=== PATIENT | male | born 1945 | race Caucasian/White ===

== ENCOUNTER 2017-05-15 13:02 | Inpatient (IN) | payer MEDICARE, OTHER ==
[2017-05-15 13:02] VITALS: BMI 31.8
--- NOTE | 2017-05-15 13:13 | C.PDOC ---
History Of Present Illness 72M c/o productive cough and sob worsening for the last week, worse w exertion. subjective fever not measured. esrd on dialysis last yesterday. says pmd gave him medicine for his illness which he has finished but he is not sure what it was. Time Seen by Provider: 05/15/17 13:13 Chief Complaint (Nursing): Shortness Of Breath Past Medical History Vital Signs: Last Vital Signs Temp 97.8 F 05/15/17 13:05 Pulse 100 H 05/15/17 13:05 Resp 18 05/15/17 13:05 BP 142/76 05/15/17 13:05 Pulse Ox 96 05/15/17 13:23 - Medical History PMH: Asthma, CAD, CHF, Diabetes, HTN, Hypercholesterolemia, Hyperlipidemia, Chronic Kidney Disease - Jet Procedures CATARAC PHACOEMULS/ASPIR (03/09/13) INSERT LENS AT CATAR EXT (03/09/13) Family History: States: Other Other Family History: nc - Social History Hx Tobacco Use: No Hx Alcohol Use: No Hx Substance Use: No Review Of Systems Except As Marked, All Systems Reviewed And Found Negative. Constitutional: Positive for: Fever, Malaise Cardiovascular: Positive for: Edema. Negative for: Chest Pain Respiratory: Positive for: Cough, Shortness of Breath, SOB with Excertion, Sputum, Wheezing. Negative for: Hemoptysis Gastrointestinal: Negative for: Vomiting, Abdominal Pain Physical Exam - Physical Exam Appears: Non-toxic, No Acute Distress Skin: Warm, Dry Eye(s): bilateral: PERRL Nose: No Epistaxis Oral Mucosa: Moist Neck: Normal ROM Cardiovascular: Rhythm Regular Respiratory: Decreased Breath Sounds, No Accessory Muscle Use, Wheezing Gastrointestinal/Abdominal: Soft, No Tenderness Extremity: Swelling (1+ BLE) Pulses: Left Radial: Normal, Right Radial: Normal Neurological/Psych: Oriented x3, Other (no focal deficits) ED Course And Treatment O2 Sat by Pulse Oximetry: 96 Disposition - Disposition Forms: [employer] (Setswana)
[2017-05-15] MEDS ORDERED: Azithromycin 500 MG in Sodium Chloride 0.9% 250 ML IVPB STA (13:23)
[2017-05-15] MEDS: Albuterol-Ipratrop 3 mg / 0.5 (3 ml) UD IH SCH ×3 (13:35→14:07)
[2017-05-15] MEDS ORDERED: Albuterol-Ipratrop 3 mg / 0.5 (3 ml) UD ONE ×2 (13:38→13:50)
[2017-05-15] MEDS ORDERED: Sodium Chloride 0.9% 1,000 ML ONE (13:53)
[2017-05-15] MEDS ORDERED: cefTRIAXone IV 1 gm in Dextros 50 ML IVPB ONE (13:53)
[2017-05-15 14:10] LABS: BASO # 0.1 K/uL (0.0-0.2); BASO % 0.6 % (0.0-2.0); EOS # 0.3 K/uL (0.0-0.7); EOS % 3.2 % (0.0-4.0); HEMATOCRIT 32.4 % (35.0-51.0); LYMPH # 1.6 K/uL (1.0-4.3); LYMPH % 16.5 % (20.0-40.0); MEAN CELL VOLUME 90.2 fL (80.0-94.0); MEAN CORPUSCULAR HEMOGLOBIN 30.1 pg (27.0-31.0); MEAN CORPUSCULAR HGB CONC 33.4 g/dL (33.0-37.0); MEAN PLATELET VOLUME 8.3 fL (7.2-11.7); MONO # 1.4 K/uL (0.0-0.8); MONO % 13.9 % (0.0-10.0); RED CELL DISTRIBUTION WIDTH 14.9 % (11.5-14.5)
[2017-05-15 14:22] LABS: DRAW SITE VBG; VENOUS BLOOD GAS BASE EXCESS 6.5 mmol/L (0.0-2.0); VENOUS BLOOD GAS PCO2 60 mmHg (40-60); VENOUS BLOOD PH 7.36 (7.32-7.43)
[2017-05-15 14:36] LABS: ALB/GLOB RATIO 0.9 (1.0-2.1); TOTAL PROTEIN 8.7 g/dL (6.3-8.3)
[2017-05-15 14:37] LABS: POTASSIUM 5.1 mmol/L (3.6-5.2)
[2017-05-15] MEDS ORDERED: Azithromycin 500mg/250ML NS 500 MG/250 ML BAG IVPB ONE (14:42)
[2017-05-15] MEDS: (Novolin 70/30) NPH/Regular 70/30 Units/ml 10 ml vial SC SCH (18:11)
[2017-05-15] MEDS: Ranolazine 500 mg Extended Release Tablets PO SCH (18:11)
--- NOTE | 2017-05-15 21:20 | CP.PCM.HP ---
History of Present Illness - History of Present Illness History of Present Illness: A 72-year-old male with PMHasthma, ISD, CHF, DM, HTN, hypercholesterolemia, hyperlipidemia and CKD [on dialysis] presents for cough and shortness of breath. C/ cough for 1 week. Productive of whitish sputum, occasionally yellowish. C/Oshortness of breath for 1 week. Insidious in onset, progressive, on exertion , on walking 1-2 blocks, Partly relieved by rest. C/Ofever for 3-4 days. Mild, low-grade, no chills or rigors. No C/Ochest pain, hemoptysis, palpitations, PND. Past Patient History - Infectious Disease Hx of Infectious Diseases: None - Past Medical History & Family History Past Medical History?: Yes - Past Social History Smoking Status: Never Smoked - CARDIAC Hx Congestive Heart Failure: Yes Hx Hypercholesterolemia: Yes Hx Hypertension: Yes - PULMONARY Hx Asthma: Yes - NEUROLOGICAL Hx Neurological Disorder: No - HEENT Hx HEENT Problems: No - RENAL Hx Chronic Kidney Disease: Yes - ENDOCRINE/METABOLIC Hx Diabetes Mellitus Type 2: Yes - HEMATOLOGICAL/ONCOLOGICAL Hx Blood Disorders: No - INTEGUMENTARY Hx Dermatological Problems: No - MUSCULOSKELETAL/RHEUMATOLOGICAL Hx Falls: No - GASTROINTESTINAL Hx Gastrointestinal Disorders: No - GENITOURINARY/GYNECOLOGICAL Hx Genitourinary Disorders: No - PSYCHIATRIC Hx Substance Use: No - SURGICAL HISTORY Hx Angioplasty: Yes Hx Open Heart Surgery: Yes - ANESTHESIA Hx Anesthesia: Yes Hx Anesthesia Reactions: No Meds Allergies/Adverse Reactions: Allergies Allergy/AdvReac Type Severity Reaction Status Date / Time No Known Allergies Allergy Verified 05/15/17 13:06 Results - Vital Signs Recent Vital Signs: Last Vital Signs Temp 98.5 F 05/15/17 16:15 Pulse 103 H 05/15/17 16:15 Resp 16 05/15/17 16:35 BP 136/75 05/15/17 16:15 Pulse Ox 98 05/15/17 16:15 - Labs Result Diagrams: 05/19/17 08:09 05/19/17 08:09 Labs: Laboratory Results - last 24 hr 05/15/17 05/15/17 05/15/17 13:20 14:07 14:07 WBC 10.0 RBC 3.59 L Hgb 10.8 L Hct 32.4 L MCV 90.2 D MCH 30.1 MCHC 33.4 RDW 14.9 H Plt Count 255 MPV 8.3 Neut % (Auto) 65.8 Lymph % (Auto) 16.5 L Emanuel % (Auto) 13.9 H Eos % (Auto) 3.2 Baso % (Auto) 0.6 Neut # 6.6 Lymph # 1.6 Emanuel # 1.4 H Eos # 0.3 Baso # 0.1 Puncture Site pO2 Gio Test VBG pH VBG pCO2 VBG HCO3 VBG O2 Sat (Calc) VBG Base Excess Sodium 132 Potassium 5.1 Chloride 92 L Carbon Dioxide 28 Anion Gap 17 BUN 27 H Creatinine 3.2 H Est GFR ( Amer) 23 Est GFR (Non-Af Amer) 19 POC Glucose (mg/dL) Random Glucose 201 H Calcium 9.0 Total Bilirubin 1.0 AST 51 ALT 40 Alkaline Phosphatase 75 Total Protein 8.7 H Albumin 4.1 Globulin 4.6 H Albumin/Globulin Ratio 0.9 L Influenza Typ A,B (EIA) Negative for flu a/b 05/15/17 05/15/17 14:18 17:44 WBC RBC Hgb Hct MCV MCH MCHC RDW Plt Count MPV Neut % (Auto) Lymph % (Auto) Emanuel % (Auto) Eos % (Auto) Baso % (Auto) Neut # Lymph # Emanuel # Eos # Baso # Puncture Site Vbg pO2 35 Gio Test Na VBG pH 7.36 VBG pCO2 60 VBG HCO3 29.1 VBG O2 Sat (Calc) 70.6 H VBG Base Excess 6.5 H Sodium Potassium Chloride Carbon Dioxide Anion Gap BUN Creatinine Est GFR ( Amer) Est GFR (Non-Af Amer) POC Glucose (mg/dL) 354 H Random Glucose Calcium Total Bilirubin AST ALT Alkaline Phosphatase Total Protein Albumin Globulin Albumin/Globulin Ratio Influenza Typ A,B (EIA)
[2017-05-15] MEDS: (Novolin R) Insulin Human Regular 100 units/ml vial SC SCH (21:41)
[2017-05-16] MEDS: Albuterol-Ipratrop 3 mg / 0.5 (3 ml) UD INH SCH ×4 (01:33→19:31)
[2017-05-16] MEDS: (Novolin R) Insulin Human Regular 100 units/ml vial SC SCH ×4 (07:44→21:26)
[2017-05-16] MEDS ORDERED: CRESTOR 10 MG PO SCH (10:00)
[2017-05-16] MEDS: cefTRIAXone IV 1 gm in Dextros 50 ML IVPB SCH (10:22)
[2017-05-16] MEDS: Ranolazine 500 mg Extended Release Tablets PO SCH ×2 (10:23→17:51)
[2017-05-16] MEDS: Azithromycin 500mg/250ML NS 500 MG/250 ML BAG IVPB SCH (10:24)
[2017-05-16] MEDS: (Novolin 70/30) NPH/Regular 70/30 Units/ml 10 ml vial SC SCH ×2 (10:25→17:52)
[2017-05-16] MEDS: MethylPREDNISolone 40 mg Vial IVP SCH ×2 (10:32→21:25)
--- NOTE | 2017-05-16 18:04 | CP.PCM.CON ---
History of Present Illness - History of Present Illness History of Present Illness: reason for consultation: cough and shortness of breath 72-year-old male with history of end-stage renal disease , diabetes, coronary artery disease presented to emergency room with shortness of breath and productive cough worsening over the last 2 weeks. Patient was treated as outpatien without any relief. Also complaining off subjective fever but denies chest pain Review of Systems - Review of Systems All systems: reviewed and no additional remarkable complaints except (shortness of breath and cough) Past Patient History - Infectious Disease Hx of Infectious Diseases: None - Past Medical History & Family History Past Medical History?: Yes - Past Social History Smoking Status: Never Smoked - CARDIAC Hx Congestive Heart Failure: Yes Hx Hypercholesterolemia: Yes Hx Hypertension: Yes - PULMONARY Hx Asthma: Yes - NEUROLOGICAL Hx Neurological Disorder: No - HEENT Hx HEENT Problems: No - RENAL Hx Chronic Kidney Disease: Yes - ENDOCRINE/METABOLIC Hx Diabetes Mellitus Type 2: Yes - HEMATOLOGICAL/ONCOLOGICAL Hx Blood Disorders: No - INTEGUMENTARY Hx Dermatological Problems: No - MUSCULOSKELETAL/RHEUMATOLOGICAL Hx Falls: No - GASTROINTESTINAL Hx Gastrointestinal Disorders: No - GENITOURINARY/GYNECOLOGICAL Hx Genitourinary Disorders: No - PSYCHIATRIC Hx Substance Use: No - SURGICAL HISTORY Hx Angioplasty: Yes Hx Open Heart Surgery: Yes - ANESTHESIA Hx Anesthesia: Yes Hx Anesthesia Reactions: No Meds Allergies/Adverse Reactions: Allergies Allergy/AdvReac Type Severity Reaction Status Date / Time No Known Allergies Allergy Verified 05/15/17 13:06 - Medications Medications: Current Medications Albuterol/Ipratropium (Duoneb 3 Mg/0.5 Mg (3 Ml) Ud) 3 ml INH RQ6 [facility] Last Admin: 05/16/17 13:34 Dose: Not Given Carvedilol (Coreg) 6.25 mg PO BID [facility] Last Admin: 05/16/17 17:51 Dose: 6.25 mg Clopidogrel Bisulfate (Plavix) 75 mg PO DAILY [facility] Last Admin: 05/16/17 10:24 Dose: Not Given Glimepiride (Amaryl) 4 mg PO DAILY [facility] Last Admin: 05/16/17 10:23 Dose: 4 mg Heparin Sodium (Porcine) (Heparin) 5,000 units SC Q8 [facility] Last Admin: 05/16/17 14:17 Dose: Not Given Azithromycin (Zithromax 500mg In Ns Addvantage) 500 mg in 250 mls @ 167 mls/hr IVPB Q24H [facility] Last Admin: 05/16/17 10:24 Dose: 167 mls/hr Ceftriaxone Sodium (Rocephin Iv 1 Gm Duplex) 50 mls @ 100 mls/hr IVPB DAILY [facility] Last Admin: 05/16/17 10:22 Dose: 100 mls/hr Insulin Human Isoph/Insulin Regular (Novolin 70/30 (70/30 Units/Ml) 10 Ml) 50 units SC BID [facility] Last Admin: 05/16/17 17:52 Dose: 50 units Insulin Human Regular (Novolin R) 0 unit SC ACHS [facility] PRN Reason: Protocol Last Admin: 05/16/17 16:30 Dose: 6 unit Isosorbide Mononitrate (Imdur) 60 mg PO DAILY [facility] Last Admin: 05/16/17 10:25 Dose: Not Given Losartan Potassium (Cozaar) 50 mg PO DAILY [facility] Last Admin: 05/16/17 10:26 Dose: Not Given Methylprednisolone (Solu-Medrol) 40 mg IVP Q12H [facility] Last Admin: 05/16/17 10:32 Dose: 40 mg Montelukast Sodium (Singulair) 10 mg PO DAILY [facility] Last Admin: 05/16/17 10:23 Dose: 10 mg Pneumococcal Polyvalent Vaccine (Pneumovax 23 Vaccine) 0.5 ml IM .ONCE ONE Stop: 05/18/17 10:01 Ranolazine (Ranexa) 500 mg PO BID [facility] Last Admin: 05/16/17 17:51 Dose: 500 mg Rosuvastatin Calcium (Crestor) 10 mg PO HS [facility] Last Admin: 05/15/17 21:32 Dose: 10 mg Sitagliptin Phosphate (Januvia) 100 mg PO DAILY [facility] Last Admin: 05/16/17 10:23 Dose: 100 mg Physical Exam - Head Exam Head Exam: ATRAUMATIC, NORMOCEPHALIC - ENT Exam ENT Exam: Mucous Membranes Moist Results - Vital Signs Recent Vital Signs: Last Vital Signs Temp 97.5 F L 05/16/17 15:15 Pulse 89 05/16/17 15:15 Resp 20 05/16/17 15:15 BP 104/68 05/16/17 15:15 Pulse Ox 96 05/16/17 15:15 - Labs Result Diagrams: 05/15/17 14:07 05/15/17 14:07 Labs: Laboratory Results - last 24 hr 05/15/17 05/16/17 05/16/17 21:22 07:08 11:38 POC Glucose (mg/dL) 441 H* 313 H 296 H 05/16/17 16:12 POC Glucose (mg/dL) 318 H Assessment & Plan (1) Cough Status: Acute Comment: cough and shortness of breath. rule out pneumonia. Continue antibiotics. Followup culture and sensitivity. Nebulizer treatment. Continue hemodialysis (2) Renal insufficiency Status: Acute
--- NOTE | 2017-05-16 18:26 | CP.PCM.PN ---
Subjective - Date & Time of Evaluation Date of Evaluation: 05/16/17 Time of Evaluation: 09:00 - Subjective Subjective: clinically same Objective - Vital Signs/Intake and Output Vital Signs (last 24 hours): Temp Pulse Resp BP Pulse Ox 97.5 F L 89 20 104/68 96 05/16/17 15:15 05/16/17 15:15 05/16/17 15:15 05/16/17 15:15 05/16/17 15:15 Intake and Output: 05/16/17 05/16/17 06:59 18:59 Intake Total 100 650 Output Total 400 Balance -300 650 - Medications Medications: Current Medications Albuterol/Ipratropium (Duoneb 3 Mg/0.5 Mg (3 Ml) Ud) 3 ml INH RQ6 [facility] Last Admin: 05/16/17 13:34 Dose: Not Given Carvedilol (Coreg) 6.25 mg PO BID [facility] Last Admin: 05/16/17 17:51 Dose: 6.25 mg Clopidogrel Bisulfate (Plavix) 75 mg PO DAILY [facility] Last Admin: 05/16/17 10:24 Dose: Not Given Glimepiride (Amaryl) 4 mg PO DAILY [facility] Last Admin: 05/16/17 10:23 Dose: 4 mg Heparin Sodium (Porcine) (Heparin) 5,000 units SC Q8 [facility] Last Admin: 05/16/17 14:17 Dose: Not Given Azithromycin (Zithromax 500mg In Ns Addvantage) 500 mg in 250 mls @ 167 mls/hr IVPB Q24H [facility] Last Admin: 05/16/17 10:24 Dose: 167 mls/hr Ceftriaxone Sodium (Rocephin Iv 1 Gm Duplex) 50 mls @ 100 mls/hr IVPB DAILY [facility] Last Admin: 05/16/17 10:22 Dose: 100 mls/hr Insulin Human Isoph/Insulin Regular (Novolin 70/30 (70/30 Units/Ml) 10 Ml) 50 units SC BID [facility] Last Admin: 05/16/17 17:52 Dose: 50 units Insulin Human Regular (Novolin R) 0 unit SC ACHS [facility] PRN Reason: Protocol Last Admin: 05/16/17 16:30 Dose: 6 unit Isosorbide Mononitrate (Imdur) 60 mg PO DAILY [facility] Last Admin: 05/16/17 10:25 Dose: Not Given Losartan Potassium (Cozaar) 50 mg PO DAILY [facility] Last Admin: 05/16/17 10:26 Dose: Not Given Methylprednisolone (Solu-Medrol) 40 mg IVP Q12H [facility] Last Admin: 05/16/17 10:32 Dose: 40 mg Montelukast Sodium (Singulair) 10 mg PO DAILY [facility] Last Admin: 05/16/17 10:23 Dose: 10 mg Pneumococcal Polyvalent Vaccine (Pneumovax 23 Vaccine) 0.5 ml IM .ONCE ONE Stop: 05/18/17 10:01 Promethazine HCl/Dextromethorphan (Phenergan Dm Syrup) 5 ml PO Q6H PRN PRN Reason: Cough Ranolazine (Ranexa) 500 mg PO BID [facility] Last Admin: 05/16/17 17:51 Dose: 500 mg Rosuvastatin Calcium (Crestor) 10 mg PO HS [facility] Last Admin: 05/15/17 21:32 Dose: 10 mg Sitagliptin Phosphate (Januvia) 100 mg PO DAILY [facility] Last Admin: 05/16/17 10:23 Dose: 100 mg - Labs Labs: 05/15/17 14:07 05/15/17 14:07 - Constitutional Appears: Well - Head Exam Head Exam: ATRAUMATIC, NORMAL INSPECTION, NORMOCEPHALIC - Eye Exam Eye Exam: EOMI, Normal appearance, PERRL Pupil Exam: NORMAL ACCOMODATION, PERRL - ENT Exam ENT Exam: Mucous Membranes Moist, Normal Exam - Neck Exam Neck Exam: Full ROM, Normal Inspection. absent: Lymphadenopathy - Respiratory Exam Respiratory Exam: Decreased Breath Sounds - Cardiovascular Exam Cardiovascular Exam: REGULAR RHYTHM, +S1, +S2. absent: Murmur - GI/Abdominal Exam GI & Abdominal Exam: Soft, Normal Bowel Sounds. absent: Tenderness - Rectal Exam Rectal Exam: Deferred Assessment and Plan (1) Cough Status: Acute (2) Chest pain Status: Acute (3) Chronic obstructive lung disease Status: Acute (4) Exertional dyspnea Status: Acute (5) Renal insufficiency Status: Acute - Assessment and Plan (Free Text) Plan: Patient examined. EKG suggestive of sinus tachycardia and ST and T-wave abnormality. Chest x-ray suggestive of moderate venous congestion. Left pleural effusion. Continue ceftriaxone and azithromycin. Continue clopidogrel. Continue antihypertensive and antidiabetic medications. Continue supportive care.
[2017-05-16] MEDS: Promethazine DM 6.25 mg-15 mg/5 ml Syrup PO PRN (21:25)
[2017-05-17] MEDS: Albuterol-Ipratrop 3 mg / 0.5 (3 ml) UD INH SCH ×4 (02:26→20:00)
[2017-05-17] MEDS: Promethazine DM 6.25 mg-15 mg/5 ml Syrup PO PRN ×2 (05:24→17:46)
[2017-05-17] MEDS: (Novolin R) Insulin Human Regular 100 units/ml vial SC SCH ×4 (07:42→21:33)
[2017-05-17] MEDS: Ranolazine 500 mg Extended Release Tablets PO SCH ×2 (10:20→17:45)
[2017-05-17] MEDS: (Novolin 70/30) NPH/Regular 70/30 Units/ml 10 ml vial SC SCH ×2 (10:21→17:46)
[2017-05-17] MEDS: MethylPREDNISolone 40 mg Vial IVP SCH ×2 (10:30→21:33)
[2017-05-17] MEDS: cefTRIAXone IV 1 gm in Dextros 50 ML IVPB SCH (10:31)
[2017-05-17] MEDS: Azithromycin 500mg/250ML NS 500 MG/250 ML BAG IVPB SCH (11:11)
--- NOTE | 2017-05-17 13:49 | CP.PCM.PN ---
Subjective - Date & Time of Evaluation Date of Evaluation: 05/17/17 Time of Evaluation: 09:00 - Subjective Subjective: clinically same Objective - Vital Signs/Intake and Output Vital Signs (last 24 hours): Temp Pulse Resp BP Pulse Ox 97.8 F 84 20 126/75 97 05/17/17 08:00 05/17/17 08:00 05/17/17 08:00 05/17/17 08:00 05/17/17 11:55 Intake and Output: 05/17/17 05/17/17 06:59 18:59 Intake Total 240 Balance 240 - Medications Medications: Current Medications Albuterol/Ipratropium (Duoneb 3 Mg/0.5 Mg (3 Ml) Ud) 3 ml INH RQ6 [facility] Last Admin: 05/17/17 13:23 Dose: Not Given Carvedilol (Coreg) 6.25 mg PO BID [facility] Last Admin: 05/17/17 10:20 Dose: 6.25 mg Clopidogrel Bisulfate (Plavix) 75 mg PO DAILY [facility] Last Admin: 05/17/17 10:20 Dose: 75 mg Glimepiride (Amaryl) 4 mg PO DAILY [facility] Last Admin: 05/17/17 10:20 Dose: 4 mg Heparin Sodium (Porcine) (Heparin) 5,000 units SC Q8 [facility] Last Admin: 05/17/17 05:25 Dose: 5,000 units Azithromycin (Zithromax 500mg In Ns Addvantage) 500 mg in 250 mls @ 167 mls/hr IVPB Q24H [facility] Last Admin: 05/17/17 11:11 Dose: 167 mls/hr Ceftriaxone Sodium (Rocephin Iv 1 Gm Duplex) 50 mls @ 100 mls/hr IVPB DAILY [facility] Last Admin: 05/17/17 10:31 Dose: 100 mls/hr Insulin Human Isoph/Insulin Regular (Novolin 70/30 (70/30 Units/Ml) 10 Ml) 50 units SC BID [facility] Last Admin: 05/17/17 10:21 Dose: 50 units Insulin Human Regular (Novolin R) 0 unit SC ACHS [facility] PRN Reason: Protocol Last Admin: 05/17/17 11:43 Dose: 6 unit Isosorbide Mononitrate (Imdur) 60 mg PO DAILY [facility] Last Admin: 05/17/17 10:20 Dose: 60 mg Losartan Potassium (Cozaar) 50 mg PO DAILY [facility] Last Admin: 05/17/17 10:20 Dose: 50 mg Methylprednisolone (Solu-Medrol) 40 mg IVP Q12H [facility] Last Admin: 05/17/17 10:30 Dose: 40 mg Montelukast Sodium (Singulair) 10 mg PO DAILY [facility] Last Admin: 05/17/17 10:20 Dose: 10 mg Pneumococcal Polyvalent Vaccine (Pneumovax 23 Vaccine) 0.5 ml IM .ONCE ONE Stop: 05/18/17 10:01 Promethazine HCl/Dextromethorphan (Phenergan Dm Syrup) 5 ml PO Q6H PRN PRN Reason: Cough Last Admin: 05/17/17 05:24 Dose: 5 ml Ranolazine (Ranexa) 500 mg PO BID [facility] Last Admin: 05/17/17 10:20 Dose: 500 mg Rosuvastatin Calcium (Crestor) 10 mg PO HS [facility] Last Admin: 05/16/17 21:25 Dose: 10 mg Sitagliptin Phosphate (Januvia) 100 mg PO DAILY [facility] Last Admin: 05/17/17 10:20 Dose: 100 mg - Labs Labs: 05/15/17 14:07 05/15/17 14:07 - Constitutional Appears: Well - Head Exam Head Exam: ATRAUMATIC, NORMAL INSPECTION, NORMOCEPHALIC - Eye Exam Eye Exam: EOMI, Normal appearance, PERRL Pupil Exam: NORMAL ACCOMODATION, PERRL - ENT Exam ENT Exam: Mucous Membranes Moist, Normal Exam - Neck Exam Neck Exam: Full ROM, Normal Inspection. absent: Lymphadenopathy - Respiratory Exam Respiratory Exam: Decreased Breath Sounds - Cardiovascular Exam Cardiovascular Exam: REGULAR RHYTHM, +S1, +S2 - GI/Abdominal Exam GI & Abdominal Exam: Soft, Diminished Bowel Sounds - Rectal Exam Rectal Exam: Deferred Assessment and Plan (1) Cough Status: Acute (2) Chest pain Status: Acute (3) Chronic obstructive lung disease Status: Acute (4) Exertional dyspnea Status: Acute (5) Renal insufficiency Status: Acute - Assessment and Plan (Free Text) Plan: Patient examined. Patient better. Continue clopidogrel. Continue ceftriaxone and azithromycin. Continue antidiabetic and antihypertensive medications. Continue supportive care.
[2017-05-18] MEDS: Albuterol-Ipratrop 3 mg / 0.5 (3 ml) UD INH SCH ×4 (02:53→19:48)
[2017-05-18] MEDS ORDERED: Azithromycin 500 MG in Sodium Chloride 0.9% 250 ML IVPB SCH (06:45)
[2017-05-18] MEDS: (Novolin R) Insulin Human Regular 100 units/ml vial SC SCH ×4 (08:23→21:18)
[2017-05-18] MEDS ORDERED: Pneumococcal 23-Valent Vaccine IM ONE (10:00)
[2017-05-18] MEDS ORDERED: Influenza Vaccine 60 mcg/0.5 mL SYR (4YR UP) IM ONE (10:00)
[2017-05-18] MEDS: Ranolazine 500 mg Extended Release Tablets PO SCH ×2 (10:13→17:06)
[2017-05-18] MEDS: (Novolin 70/30) NPH/Regular 70/30 Units/ml 10 ml vial SC SCH ×2 (10:14→17:07)
[2017-05-18] MEDS: MethylPREDNISolone 40 mg Vial IVP SCH ×2 (10:18→21:17)
[2017-05-18] MEDS: Azithromycin 500 MG in Sodium Chloride 0.9% 250 ML IVPB SCH (10:18)
[2017-05-18] MEDS: cefTRIAXone IV 1 gm in Dextros 50 ML IVPB SCH (10:19)
--- NOTE | 2017-05-18 15:10 | RAD ---
HISTORY: Shortness of breath. Cough. COMPARISON: No prior. FINDINGS: LUNGS: Moderate venous congestion. Left basilar airspace opacity with small left pleural effusion. PLEURA: As above. CARDIOVASCULAR: Status post median sternotomy and CABG. OSSEOUS STRUCTURES: Degenerative changes in the spine and shoulders. VISUALIZED UPPER ABDOMEN: Normal. OTHER FINDINGS: None. IMPRESSION: Moderate venous congestion. Left basilar airspace opacity with small left pleural effusion.
--- NOTE | 2017-05-18 17:04 | CP.PCM.PN ---
Subjective - Date & Time of Evaluation Date of Evaluation: 05/18/17 Time of Evaluation: 08:30 - Subjective Subjective: still complaining of shortness of breath and cough Denies fever chills Chest x-ray consistent with left basilar infiltrate Objective - Vital Signs/Intake and Output Vital Signs (last 24 hours): Temp Pulse Resp BP Pulse Ox 97.4 F L 96 H 20 108/58 L 98 05/18/17 16:55 05/18/17 16:55 05/18/17 16:55 05/18/17 16:55 05/18/17 16:55 Intake and Output: 05/18/17 05/18/17 06:59 18:59 Intake Total 180 540 Balance 180 540 - Medications Medications: Current Medications Albuterol/Ipratropium (Duoneb 3 Mg/0.5 Mg (3 Ml) Ud) 3 ml INH RQ6 [facility] Last Admin: 05/18/17 07:56 Dose: Not Given Carvedilol (Coreg) 6.25 mg PO BID [facility] Last Admin: 05/18/17 10:18 Dose: 6.25 mg Clopidogrel Bisulfate (Plavix) 75 mg PO DAILY [facility] Last Admin: 05/18/17 10:14 Dose: 75 mg Glimepiride (Amaryl) 4 mg PO DAILY [facility] Last Admin: 05/18/17 10:13 Dose: 4 mg Heparin Sodium (Porcine) (Heparin) 5,000 units SC Q8 [facility] Last Admin: 05/18/17 13:31 Dose: 5,000 units Ceftriaxone Sodium (Rocephin Iv 1 Gm Duplex) 50 mls @ 100 mls/hr IVPB DAILY [facility] Last Admin: 05/18/17 10:19 Dose: 100 mls/hr Azithromycin 500 mg/ Sodium (Chloride) 250 mls @ 167 mls/hr IVPB Q24H [facility] Last Admin: 05/18/17 10:18 Dose: 167 mls/hr Insulin Human Isoph/Insulin Regular (Novolin 70/30 (70/30 Units/Ml) 10 Ml) 50 units SC BID [facility] Last Admin: 05/18/17 10:14 Dose: 50 units Insulin Human Regular (Novolin R) 0 unit SC ACHS [facility] PRN Reason: Protocol Last Admin: 05/18/17 11:56 Dose: 8 unit Isosorbide Mononitrate (Imdur) 60 mg PO DAILY [facility] Last Admin: 05/18/17 10:14 Dose: 60 mg Losartan Potassium (Cozaar) 50 mg PO DAILY [facility] Last Admin: 05/18/17 10:14 Dose: 50 mg Methylprednisolone (Solu-Medrol) 20 mg IVP Q12 [facility] Montelukast Sodium (Singulair) 10 mg PO DAILY [facility] Last Admin: 05/18/17 10:14 Dose: 10 mg Promethazine HCl/Dextromethorphan (Phenergan Dm Syrup) 5 ml PO Q6H PRN PRN Reason: Cough Last Admin: 05/17/17 17:46 Dose: 5 ml Ranolazine (Ranexa) 500 mg PO BID [facility] Last Admin: 05/18/17 10:13 Dose: 500 mg Rosuvastatin Calcium (Crestor) 10 mg PO HS [facility] Last Admin: 05/17/17 21:31 Dose: 10 mg Sitagliptin Phosphate (Januvia) 25 mg PO DAILY [facility] - Labs Labs: 05/15/17 14:07 05/15/17 14:07 - Head Exam Head Exam: ATRAUMATIC, NORMOCEPHALIC - ENT Exam ENT Exam: Mucous Membranes Moist - Neck Exam Neck Exam: Normal Inspection - Respiratory Exam Respiratory Exam: Rales - Cardiovascular Exam Cardiovascular Exam: REGULAR RHYTHM - GI/Abdominal Exam GI & Abdominal Exam: Soft, Normal Bowel Sounds Assessment and Plan (1) Cough Assessment & Plan: possible left lung infiltrate Continue antibiotics Taper steroids Continue bronchodilators Status: Acute (2) Renal insufficiency Status: Acute
[2017-05-18] MEDS: Promethazine DM 6.25 mg-15 mg/5 ml Syrup PO PRN (17:53)
--- NOTE | 2017-05-18 19:09 | CP.PCM.PN ---
Subjective - Date & Time of Evaluation Date of Evaluation: 05/18/17 Time of Evaluation: 08:00 - Subjective Subjective: clinically same Objective - Vital Signs/Intake and Output Vital Signs (last 24 hours): Temp Pulse Resp BP Pulse Ox 97.4 F L 96 H 20 108/58 L 98 05/18/17 16:55 05/18/17 16:55 05/18/17 16:55 05/18/17 16:55 05/18/17 16:55 Intake and Output: 05/18/17 05/19/17 18:59 06:59 Intake Total 540 Balance 540 - Medications Medications: Current Medications Albuterol/Ipratropium (Duoneb 3 Mg/0.5 Mg (3 Ml) Ud) 3 ml INH RQ6 [facility] Last Admin: 05/18/17 07:56 Dose: Not Given Carvedilol (Coreg) 6.25 mg PO BID [facility] Last Admin: 05/18/17 17:06 Dose: 6.25 mg Clopidogrel Bisulfate (Plavix) 75 mg PO DAILY [facility] Last Admin: 05/18/17 10:14 Dose: 75 mg Glimepiride (Amaryl) 4 mg PO DAILY [facility] Last Admin: 05/18/17 10:13 Dose: 4 mg Heparin Sodium (Porcine) (Heparin) 5,000 units SC Q8 [facility] Last Admin: 05/18/17 13:31 Dose: 5,000 units Ceftriaxone Sodium (Rocephin Iv 1 Gm Duplex) 50 mls @ 100 mls/hr IVPB DAILY [facility] Last Admin: 05/18/17 10:19 Dose: 100 mls/hr Azithromycin 500 mg/ Sodium (Chloride) 250 mls @ 167 mls/hr IVPB Q24H [facility] Last Admin: 05/18/17 10:18 Dose: 167 mls/hr Insulin Human Isoph/Insulin Regular (Novolin 70/30 (70/30 Units/Ml) 10 Ml) 50 units SC BID [facility] Last Admin: 05/18/17 17:07 Dose: 50 units Insulin Human Regular (Novolin R) 0 unit SC ACHS [facility] PRN Reason: Protocol Last Admin: 05/18/17 17:08 Dose: 2 unit Isosorbide Mononitrate (Imdur) 60 mg PO DAILY [facility] Last Admin: 05/18/17 10:14 Dose: 60 mg Losartan Potassium (Cozaar) 50 mg PO DAILY [facility] Last Admin: 05/18/17 10:14 Dose: 50 mg Methylprednisolone (Solu-Medrol) 20 mg IVP Q12 [facility] Montelukast Sodium (Singulair) 10 mg PO DAILY [facility] Last Admin: 05/18/17 10:14 Dose: 10 mg Promethazine HCl/Dextromethorphan (Phenergan Dm Syrup) 5 ml PO Q6H PRN PRN Reason: Cough Last Admin: 05/18/17 17:53 Dose: 5 ml Ranolazine (Ranexa) 500 mg PO BID [facility] Last Admin: 05/18/17 17:06 Dose: 500 mg Rosuvastatin Calcium (Crestor) 10 mg PO HS [facility] Last Admin: 05/17/17 21:31 Dose: 10 mg Sitagliptin Phosphate (Januvia) 25 mg PO DAILY [facility] - Labs Labs: 05/15/17 14:07 05/15/17 14:07 - Constitutional Appears: Well - Head Exam Head Exam: ATRAUMATIC, NORMAL INSPECTION, NORMOCEPHALIC - Eye Exam Eye Exam: EOMI, Normal appearance, PERRL Pupil Exam: NORMAL ACCOMODATION, PERRL - ENT Exam ENT Exam: Mucous Membranes Moist, Normal Exam - Neck Exam Neck Exam: Full ROM, Normal Inspection. absent: Lymphadenopathy - Respiratory Exam Respiratory Exam: Decreased Breath Sounds - Cardiovascular Exam Cardiovascular Exam: REGULAR RHYTHM, +S1, +S2 - GI/Abdominal Exam GI & Abdominal Exam: Soft, Diminished Bowel Sounds - Rectal Exam Rectal Exam: Deferred Assessment and Plan (1) Cough Status: Acute (2) Chest pain Status: Acute (3) Chronic obstructive lung disease Status: Acute (4) Exertional dyspnea Status: Acute (5) Renal insufficiency Status: Acute - Assessment and Plan (Free Text) Plan: Patient examined. Shortness of breath and cough still present. Continue clopidogrel. Continue azithromycin and ceftriaxone. Continue bronchodilators. Continue antidiabetic antihypertensive medications. Continue supportive care.
[2017-05-19] MEDS: Albuterol-Ipratrop 3 mg / 0.5 (3 ml) UD INH SCH ×4 (01:41→19:55)
[2017-05-19] MEDS: (Novolin R) Insulin Human Regular 100 units/ml vial SC SCH ×4 (07:30→22:20)
[2017-05-19 08:19] LABS: BASO % 0.3 % (0.0-2.0); HEMATOCRIT 35.1 % (35.0-51.0); LYMPH # 1.1 K/uL (1.0-4.3); LYMPH % 11.2 % (20.0-40.0); MEAN CELL VOLUME 91.3 fL (80.0-94.0); MEAN CORPUSCULAR HEMOGLOBIN 30.2 pg (27.0-31.0); MEAN PLATELET VOLUME 8.4 fL (7.2-11.7); MONO # 0.7 K/uL (0.0-0.8); MONO % 7.3 % (0.0-10.0); NRBC % 0.4 % (0.0-2.0); RED CELL DISTRIBUTION WIDTH 15.2 % (11.5-14.5); WHITE BLOOD COUNT 9.7 K/uL (4.8-10.8)
[2017-05-19 08:46] LABS: POTASSIUM 5.1 mmol/L (3.6-5.2)
[2017-05-19 08:48] LABS: BILIRUBIN,TOTAL 0.7 mg/dL (0.2-1.3)
[2017-05-19 08:49] LABS: ALB/GLOB RATIO 1.3 (1.0-2.1); TOTAL PROTEIN 7.1 g/dL (6.3-8.3)
[2017-05-19 08:50] LABS: CALCIUM 8.9 mg/dl (8.6-10.4)
[2017-05-19] MEDS: Ranolazine 500 mg Extended Release Tablets PO SCH ×2 (11:54→17:13)
[2017-05-19] MEDS: (Novolin 70/30) NPH/Regular 70/30 Units/ml 10 ml vial SC SCH ×2 (11:54→17:12)
--- NOTE | 2017-05-19 12:25 | CARD ---
APPROVED REPORT EKG Measurement Heart [id number] <Conclusion> Sinus tachycardia Inferior infarct, age undetermined ST & T wave abnormality, consider lateral ischemia Abnormal ECG
[2017-05-19] MEDS: cefTRIAXone IV 1 gm in Dextros 50 ML IVPB SCH (13:35)
[2017-05-19] MEDS: MethylPREDNISolone 40 mg Vial IVP SCH ×2 (13:43→21:59)
[2017-05-19] MEDS: Azithromycin 500 MG in Sodium Chloride 0.9% 250 ML IVPB SCH (14:24)
[2017-05-19 16:13] VITALS: RESP 20
[2017-05-19] MEDS: Promethazine DM 6.25 mg-15 mg/5 ml Syrup PO PRN (17:14)
--- NOTE | 2017-05-19 18:00 | CP.PCM.PN ---
Subjective - Date & Time of Evaluation Date of Evaluation: 05/19/17 Time of Evaluation: 17:00 - Subjective Subjective: Patient seen and examined. Breathing better but still complaining of dyspnea on minimal exertion Complaining of slight cough Denies fevers chills, denies chest pain Objective - Vital Signs/Intake and Output Vital Signs (last 24 hours): Temp Pulse Resp BP Pulse Ox 97.4 F L 89 20 121/71 96 05/19/17 16:00 05/19/17 16:00 05/19/17 16:00 05/19/17 16:00 05/19/17 16:00 Intake and Output: 05/19/17 05/19/17 06:59 18:59 Intake Total 500 600 Balance 500 600 - Medications Medications: Current Medications Albuterol/Ipratropium (Duoneb 3 Mg/0.5 Mg (3 Ml) Ud) 3 ml INH RQ6 [facility] Last Admin: 05/19/17 13:44 Dose: 3 ml Carvedilol (Coreg) 6.25 mg PO BID [facility] Last Admin: 05/19/17 17:11 Dose: 6.25 mg Clopidogrel Bisulfate (Plavix) 75 mg PO DAILY [facility] Last Admin: 05/19/17 11:53 Dose: Not Given Glimepiride (Amaryl) 4 mg PO DAILY [facility] Last Admin: 05/19/17 12:18 Dose: Not Given Ceftriaxone Sodium (Rocephin Iv 1 Gm Duplex) 50 mls @ 100 mls/hr IVPB DAILY [facility] Last Admin: 05/19/17 13:35 Dose: 100 mls/hr Azithromycin 500 mg/ Sodium (Chloride) 250 mls @ 167 mls/hr IVPB Q24H [facility] Last Admin: 05/19/17 14:24 Dose: 167 mls/hr Insulin Human Isoph/Insulin Regular (Novolin 70/30 (70/30 Units/Ml) 10 Ml) 50 units SC BID [facility] Last Admin: 05/19/17 17:12 Dose: 50 units Insulin Human Regular (Novolin R) 0 unit SC ACHS [facility] PRN Reason: Protocol Last Admin: 05/19/17 17:12 Dose: 6 unit Isosorbide Mononitrate (Imdur) 60 mg PO DAILY [facility] Last Admin: 05/19/17 11:53 Dose: Not Given Losartan Potassium (Cozaar) 50 mg PO DAILY [facility] Last Admin: 05/19/17 11:53 Dose: Not Given Methylprednisolone (Solu-Medrol) 20 mg IVP Q12 [facility] Last Admin: 05/19/17 13:43 Dose: Not Given Montelukast Sodium (Singulair) 10 mg PO DAILY [facility] Last Admin: 05/19/17 11:54 Dose: Not Given Promethazine HCl/Dextromethorphan (Phenergan Dm Syrup) 5 ml PO Q6H PRN PRN Reason: Cough Last Admin: 05/19/17 17:14 Dose: 5 ml Ranolazine (Ranexa) 500 mg PO BID [facility] Last Admin: 05/19/17 17:13 Dose: 500 mg Rosuvastatin Calcium (Crestor) 10 mg PO HS [facility] Last Admin: 05/18/17 21:18 Dose: 10 mg Sitagliptin Phosphate (Januvia) 25 mg PO DAILY [facility] Last Admin: 05/19/17 12:19 Dose: Not Given - Labs Labs: 05/19/17 08:09 05/19/17 08:09 - Head Exam Head Exam: ATRAUMATIC, NORMOCEPHALIC - ENT Exam ENT Exam: Mucous Membranes Moist - Neck Exam Neck Exam: Normal Inspection - Respiratory Exam Respiratory Exam: Decreased Breath Sounds - Cardiovascular Exam Cardiovascular Exam: REGULAR RHYTHM - GI/Abdominal Exam GI & Abdominal Exam: Soft, Normal Bowel Sounds Assessment and Plan (1) Pneumonia Assessment & Plan: Left lung infiltrate Continue antibiotics Taper steroids Continue bronchodilator Status: Acute (2) Cough Status: Acute (3) Renal insufficiency Status: Acute
--- NOTE | 2017-05-19 20:37 | CP.PCM.PN ---
Subjective - Date & Time of Evaluation Date of Evaluation: 05/19/17 Time of Evaluation: 07:40 - Subjective Subjective: clinically same Objective - Vital Signs/Intake and Output Vital Signs (last 24 hours): Temp Pulse Resp BP Pulse Ox 97.4 F L 89 20 121/71 96 05/19/17 16:00 05/19/17 16:00 05/19/17 16:00 05/19/17 16:00 05/19/17 16:00 Intake and Output: 05/19/17 05/20/17 18:59 06:59 Intake Total 600 Balance 600 - Medications Medications: Current Medications Albuterol/Ipratropium (Duoneb 3 Mg/0.5 Mg (3 Ml) Ud) 3 ml INH RQ6 [facility] Last Admin: 05/19/17 19:55 Dose: 3 ml Carvedilol (Coreg) 6.25 mg PO BID [facility] Last Admin: 05/19/17 17:11 Dose: 6.25 mg Clopidogrel Bisulfate (Plavix) 75 mg PO DAILY [facility] Last Admin: 05/19/17 11:53 Dose: Not Given Glimepiride (Amaryl) 4 mg PO DAILY [facility] Last Admin: 05/19/17 12:18 Dose: Not Given Ceftriaxone Sodium (Rocephin Iv 1 Gm Duplex) 50 mls @ 100 mls/hr IVPB DAILY [facility] Last Admin: 05/19/17 13:35 Dose: 100 mls/hr Azithromycin 500 mg/ Sodium (Chloride) 250 mls @ 167 mls/hr IVPB Q24H [facility] Last Admin: 05/19/17 14:24 Dose: 167 mls/hr Insulin Human Isoph/Insulin Regular (Novolin 70/30 (70/30 Units/Ml) 10 Ml) 50 units SC BID [facility] Last Admin: 05/19/17 17:12 Dose: 50 units Insulin Human Regular (Novolin R) 0 unit SC ACHS [facility] PRN Reason: Protocol Last Admin: 05/19/17 17:12 Dose: 6 unit Isosorbide Mononitrate (Imdur) 60 mg PO DAILY [facility] Last Admin: 05/19/17 11:53 Dose: Not Given Losartan Potassium (Cozaar) 50 mg PO DAILY [facility] Last Admin: 05/19/17 11:53 Dose: Not Given Methylprednisolone (Solu-Medrol) 20 mg IVP Q12 [facility] Last Admin: 05/19/17 13:43 Dose: Not Given Montelukast Sodium (Singulair) 10 mg PO DAILY [facility] Last Admin: 05/19/17 11:54 Dose: Not Given Promethazine HCl/Dextromethorphan (Phenergan Dm Syrup) 5 ml PO Q6H PRN PRN Reason: Cough Last Admin: 05/19/17 17:14 Dose: 5 ml Ranolazine (Ranexa) 500 mg PO BID [facility] Last Admin: 05/19/17 17:13 Dose: 500 mg Rosuvastatin Calcium (Crestor) 10 mg PO HS [facility] Last Admin: 05/18/17 21:18 Dose: 10 mg Sitagliptin Phosphate (Januvia) 25 mg PO DAILY [facility] Last Admin: 05/19/17 12:19 Dose: Not Given - Labs Labs: 05/19/17 08:09 05/19/17 08:09 - Constitutional Appears: Well - Head Exam Head Exam: ATRAUMATIC, NORMAL INSPECTION, NORMOCEPHALIC - Eye Exam Eye Exam: EOMI, Normal appearance, PERRL Pupil Exam: NORMAL ACCOMODATION, PERRL - ENT Exam ENT Exam: Mucous Membranes Moist, Normal Exam - Neck Exam Neck Exam: Full ROM, Normal Inspection. absent: Lymphadenopathy - Respiratory Exam Respiratory Exam: Decreased Breath Sounds - Cardiovascular Exam Cardiovascular Exam: REGULAR RHYTHM, +S1, +S2 - GI/Abdominal Exam GI & Abdominal Exam: Soft, Diminished Bowel Sounds - Rectal Exam Rectal Exam: Deferred Assessment and Plan (1) Cough Status: Acute (2) Chest pain Status: Acute (3) Chronic obstructive lung disease Status: Acute (4) Exertional dyspnea Status: Acute (5) Renal insufficiency Status: Acute
[2017-05-20] MEDS: Albuterol-Ipratrop 3 mg / 0.5 (3 ml) UD INH SCH ×3 (01:52→14:00)
[2017-05-20] MEDS: (Novolin R) Insulin Human Regular 100 units/ml vial SC SCH ×3 (08:13→16:53)
--- NOTE | 2017-05-20 09:52 | CT ---
PROCEDURE: CT HEAD WITHOUT CONTRAST. HISTORY: AMS, neurological deficit - failed finger to nose COMPARISON: None available. TECHNIQUE: Axial computed tomography images were obtained through the head/brain without intravenous contrast. Radiation dose: Total exam DLP = 976.91 mGy-cm. This CT exam was performed using one or more of the following dose reduction techniques: Automated exposure control, adjustment of the mA and/or kV according to patient size, and/or use of iterative reconstruction technique. FINDINGS: HEMORRHAGE: No intracranial hemorrhage. BRAIN: Diffuse atrophy with prominence of the ventricles and sulci noted. No mass effect or edema. Intracranial atherosclerosis. Scattered white matter hypodensities, which are nonspecific, but often seen with chronic microvascular ischemic disease. VENTRICLES: No hydrocephalus. CALVARIUM: Unremarkable. PARANASAL SINUSES: Unremarkable as visualized. No significant inflammatory changes. MASTOID AIR CELLS: Unremarkable as visualized. No inflammatory changes. OTHER FINDINGS: None. IMPRESSION: Generalized atrophy. Nonspecific white matter changes.
[2017-05-20] MEDS: cefTRIAXone IV 1 gm in Dextros 50 ML IVPB SCH (10:07)
[2017-05-20] MEDS: Promethazine DM 6.25 mg-15 mg/5 ml Syrup PO PRN (10:09)
[2017-05-20] MEDS: Ranolazine 500 mg Extended Release Tablets PO SCH ×2 (10:09→17:30)
[2017-05-20] MEDS: MethylPREDNISolone 40 mg Vial IVP SCH (10:10)
[2017-05-20] MEDS: (Novolin 70/30) NPH/Regular 70/30 Units/ml 10 ml vial SC SCH ×2 (10:11→17:30)
--- NOTE | 2017-05-20 10:33 | CP.PCM.PN ---
Subjective - Date & Time of Evaluation Date of Evaluation: 05/20/17 Time of Evaluation: 07:40 - Subjective Subjective: PGY3 Medicine Note - Dr. Sury Crowley's service: Patient seen and examined at bedside this AM. Per , patient became confused last night and it has not resolved this AM. Patient knows he is in the hospital. Patient does not know the year or month. Patient denies headache , fever, chills, chest pain, SOB. Objective - Vital Signs/Intake and Output Vital Signs (last 24 hours): Temp Pulse Resp BP Pulse Ox 98.5 F 98 H 20 148/76 97 05/20/17 08:00 05/20/17 08:00 05/20/17 08:00 05/20/17 08:00 05/20/17 08:00 Intake and Output: 05/20/17 05/20/17 06:59 18:59 Intake Total 590 Balance 590 - Medications Medications: Current Medications Albuterol/Ipratropium (Duoneb 3 Mg/0.5 Mg (3 Ml) Ud) 3 ml INH RQ6 [facility] Last Admin: 05/20/17 08:03 Dose: 3 ml Carvedilol (Coreg) 6.25 mg PO BID [facility] Last Admin: 05/20/17 10:10 Dose: 6.25 mg Clopidogrel Bisulfate (Plavix) 75 mg PO DAILY [facility] Last Admin: 05/20/17 10:10 Dose: 75 mg Glimepiride (Amaryl) 4 mg PO DAILY [facility] Last Admin: 05/20/17 10:10 Dose: 4 mg Ceftriaxone Sodium (Rocephin Iv 1 Gm Duplex) 50 mls @ 100 mls/hr IVPB DAILY [facility] Last Admin: 05/20/17 10:07 Dose: 100 mls/hr Azithromycin 500 mg/ Sodium (Chloride) 250 mls @ 167 mls/hr IVPB Q24H [facility] Last Admin: 05/19/17 14:24 Dose: 167 mls/hr Insulin Human Isoph/Insulin Regular (Novolin 70/30 (70/30 Units/Ml) 10 Ml) 50 units SC BID [facility] Last Admin: 05/20/17 10:11 Dose: 50 units Insulin Human Regular (Novolin R) 0 unit SC ACHS [facility] PRN Reason: Protocol Last Admin: 05/20/17 08:13 Dose: 3 unit Isosorbide Mononitrate (Imdur) 60 mg PO DAILY [facility] Last Admin: 05/20/17 10:09 Dose: 60 mg Losartan Potassium (Cozaar) 50 mg PO DAILY [facility] Last Admin: 05/20/17 10:09 Dose: 50 mg Methylprednisolone (Solu-Medrol) 20 mg IVP Q12 [facility] Last Admin: 05/20/17 10:10 Dose: 20 mg Montelukast Sodium (Singulair) 10 mg PO DAILY [facility] Last Admin: 05/20/17 10:10 Dose: 10 mg Promethazine HCl/Dextromethorphan (Phenergan Dm Syrup) 5 ml PO Q6H PRN PRN Reason: Cough Last Admin: 05/20/17 10:09 Dose: 5 ml Ranolazine (Ranexa) 500 mg PO BID [facility] Last Admin: 05/20/17 10:09 Dose: 500 mg Rosuvastatin Calcium (Crestor) 10 mg PO HS [facility] Last Admin: 05/19/17 21:59 Dose: 10 mg Sitagliptin Phosphate (Januvia) 25 mg PO DAILY [facility] Last Admin: 05/20/17 10:10 Dose: 25 mg - Labs Labs: 05/19/17 08:09 05/19/17 08:09 - Constitutional Appears: Non-toxic, No Acute Distress - Head Exam Head Exam: NORMAL INSPECTION - Eye Exam Eye Exam: EOMI - ENT Exam ENT Exam: Mucous Membranes Moist - Respiratory Exam Respiratory Exam: Clear to Ausculation Bilateral, NORMAL BREATHING PATTERN. absent: Rales, Rhonchi, Wheezes - Cardiovascular Exam Cardiovascular Exam: REGULAR RHYTHM, +S1, +S2. absent: Gallop, Rubs, Murmur - GI/Abdominal Exam GI & Abdominal Exam: Soft, Normal Bowel Sounds. absent: Tenderness - Extremities Exam Extremities Exam: absent: Pedal Edema - Neurological Exam Neurological Exam: Alert, Awake, CN II-XII Intact (except left eye which has a cataract). absent: Oriented x3 Neuro motor strength exam: Left Upper Extremity: 5, Right Upper Extremity: 5, Left Lower Extremity: 5, Right Lower Extremity: 5 Additional comments: failed finger to nose testing - Psychiatric Exam Psychiatric exam: Normal Affect, Normal Mood - Skin Skin Exam: Normal Color, Warm Assessment and Plan - Assessment and Plan (Free Text) Assessment: AMS electrolyte abnormality v. CVA v. vascular dementia v. seizure Head CT 05/20/17 - generalized atrophy and nonspecific white matter changes ( please see full report) F/U Brain MRI F/U ammonia and prolactin F/U EEG F/U carotid dopplers F/U ECHO F/U CBC and CMP Neuro consult - Dr. Chowdary - help appreciated ASA 81mg PO daily Crestor 10mg PO HS Cerebellar deficit See above plan for AMS Pneumonia CXR 05/15 - moderate venous congestion; left basilar airspace opacity with small left pleural effusion ( please see full report) Pulmonology consult - Dr. Torres help appreciated Azithromycin 500mg IVPB Q24H Rocephin 1gm IVPB daily Phenergan DM 5ml PO Q6H PRN COPD exacerbation SoluMedrol 20mg IVP Q12 Singulair 10mg PO daily Duoneb 3ml INH RQ6 [facility] CKD Hemodialysis TTS HTN Losartan 50mg PO daily Imdur 60mg PO daily Coreg 6.25mg PO BID [facility] Glimepiride 4mg PO daily Novolin 70/30 50U SC BID Januvia 25mg PO daily [facility] Monitor accuchecks Hyperlipidemia Crestor 10mg PO HS CAD EKG 05/15 - sinus tach with inferior infarct and ST&T wave abnormalities - same as EKG on 05/20/16 except for tachycardia Crestor 10mg PO HS Ranexa 500mg PO BID Plavix 75mg PO daily Losartan 50mg PO daily Imdur 60mg PO daily Coreg 6.25mg PO BID Prophylaxis Protonix 40mg PO daily Heparin 5000U SC Q8 All medical management per Dr. Sury Crowley
[2017-05-20] MEDS: Azithromycin 500 MG in Sodium Chloride 0.9% 250 ML IVPB SCH (10:48)
[2017-05-20 12:17] LABS: BASO % 0.2 % (0.0-2.0); EOS % 0.4 % (0.0-4.0); LYMPH % 11.3 % (20.0-40.0); MEAN CELL VOLUME 90.4 fL (80.0-94.0); MEAN CORPUSCULAR HEMOGLOBIN 29.9 pg (27.0-31.0); MEAN PLATELET VOLUME 8.1 fL (7.2-11.7); MONO # 0.7 K/uL (0.0-0.8); MONO % 7.6 % (0.0-10.0); NRBC % 0.4 % (0.0-2.0); RED CELL DISTRIBUTION WIDTH 14.8 % (11.5-14.5); WHITE BLOOD COUNT 8.6 K/uL (4.8-10.8)
[2017-05-20 12:41] LABS: ALB/GLOB RATIO 0.9 (1.0-2.1); BILIRUBIN,TOTAL 0.3 mg/dL (0.2-1.3); CALCIUM 8.5 mg/dl (8.6-10.4); POTASSIUM 4.5 mmol/L (3.6-5.2); TOTAL PROTEIN 7.4 g/dL (6.3-8.3)
--- NOTE | 2017-05-20 13:26 | MRI ---
PROCEDURE: MRI BRAIN WITHOUT CONTRAST HISTORY: AMS and cerebellar deficit COMPARISON: Head CT without contrast 05/20/2017. TECHNIQUE: Multiplanar, multisequence MR images of the brain were obtained without intravenous contrast enhancement. FINDINGS: HEMORRHAGE: None DWI: No evidence of an acute or early subacute infarction. BRAIN PARENCHYMA: Mild diffuse cerebral atrophy and chronic microangiopathy are reiterated the current examination. The examination is not appear dramatically changed in the interval including posterior fossa contents. No suspicious extra-axial collections evident with small left frontal exostosis again seen related to the inner table of left frontal bone. VENTRICLES: Unremarkable. No hydrocephalus. CRANIUM: A small left frontal exostosis is again appreciated. ORBITS: Grossly unremarkable. PARANASAL SINUSES/MASTOIDS: Clear VASCULAR SYSTEM: Skull base flow voids intact. OTHER FINDINGS: None. IMPRESSION: Stable limited age-related degenerative change identified as well as small left frontal exostosis. No definite acute intracranial findings.
--- NOTE | 2017-05-20 14:11 | CP.PCM.PN ---
Subjective - Date & Time of Evaluation Date of Evaluation: 05/20/17 Time of Evaluation: 09:00 - Subjective Subjective: Patient seen and examined. Complaining of dyspnea on exertion Denies fevers chills, denies chest pain Patient is alert oriented 3 Being treated for pneumonia Objective - Vital Signs/Intake and Output Vital Signs (last 24 hours): Temp Pulse Resp BP Pulse Ox 98.5 F 98 H 20 148/76 97 05/20/17 08:00 05/20/17 08:00 05/20/17 08:00 05/20/17 08:00 05/20/17 08:00 Intake and Output: 05/20/17 05/20/17 06:59 18:59 Intake Total 590 Balance 590 - Medications Medications: Current Medications Albuterol/Ipratropium (Duoneb 3 Mg/0.5 Mg (3 Ml) Ud) 3 ml INH RQ6 [facility] Last Admin: 05/20/17 14:00 Dose: Not Given Aspirin (Aspirin Chewable) 81 mg PO DAILY [facility] Last Admin: 05/20/17 10:48 Dose: 81 mg Carvedilol (Coreg) 6.25 mg PO BID [facility] Last Admin: 05/20/17 10:10 Dose: 6.25 mg Clopidogrel Bisulfate (Plavix) 75 mg PO DAILY [facility] Last Admin: 05/20/17 10:10 Dose: 75 mg Famotidine (Pepcid) 20 mg PO DAILY [facility] Glimepiride (Amaryl) 4 mg PO DAILY [facility] Last Admin: 05/20/17 10:10 Dose: 4 mg Heparin Sodium (Porcine) (Heparin) 5,000 units SC Q8 [facility] Last Admin: 05/20/17 14:07 Dose: 5,000 units Ceftriaxone Sodium (Rocephin Iv 1 Gm Duplex) 50 mls @ 100 mls/hr IVPB DAILY [facility] Last Admin: 05/20/17 10:07 Dose: 100 mls/hr Azithromycin 500 mg/ Sodium (Chloride) 250 mls @ 167 mls/hr IVPB Q24H [facility] Last Admin: 05/20/17 10:48 Dose: 167 mls/hr Insulin Human Isoph/Insulin Regular (Novolin 70/30 (70/30 Units/Ml) 10 Ml) 50 units SC BID [facility] Last Admin: 05/20/17 10:11 Dose: 50 units Insulin Human Regular (Novolin R) 0 unit SC ACHS [facility] PRN Reason: Protocol Last Admin: 05/20/17 12:06 Dose: 6 unit Isosorbide Mononitrate (Imdur) 60 mg PO DAILY [facility] Last Admin: 05/20/17 10:09 Dose: 60 mg Losartan Potassium (Cozaar) 50 mg PO DAILY [facility] Last Admin: 05/20/17 10:09 Dose: 50 mg Methylprednisolone (Solu-Medrol) 20 mg IVP Q12 [facility] Last Admin: 05/20/17 10:10 Dose: 20 mg Montelukast Sodium (Singulair) 10 mg PO DAILY [facility] Last Admin: 05/20/17 10:10 Dose: 10 mg Promethazine HCl/Dextromethorphan (Phenergan Dm Syrup) 5 ml PO Q6H PRN PRN Reason: Cough Last Admin: 05/20/17 10:09 Dose: 5 ml Ranolazine (Ranexa) 500 mg PO BID [facility] Last Admin: 05/20/17 10:09 Dose: 500 mg Rosuvastatin Calcium (Crestor) 10 mg PO HS [facility] Last Admin: 05/19/17 21:59 Dose: 10 mg Sitagliptin Phosphate (Januvia) 25 mg PO DAILY [facility] Last Admin: 05/20/17 10:10 Dose: 25 mg - Labs Labs: 05/20/17 12:00 05/20/17 12:00 - Head Exam Head Exam: ATRAUMATIC, NORMOCEPHALIC - ENT Exam ENT Exam: Mucous Membranes Moist - Neck Exam Neck Exam: Normal Inspection - Respiratory Exam Respiratory Exam: Decreased Breath Sounds - Cardiovascular Exam Cardiovascular Exam: REGULAR RHYTHM - GI/Abdominal Exam GI & Abdominal Exam: Soft, Normal Bowel Sounds Assessment and Plan (1) Pneumonia Assessment & Plan: on antibiotics, nebulizer treatment Follow-up chest x-ray Switch to by mouth antibiotics Status: Acute (2) Cough Status: Acute (3) Renal insufficiency Status: Acute
[2017-05-20 15:36] VITALS: PULSE 97; O2SAT 95
[2017-05-20 15:54] VITALS: BP 112/62; TEMP 97.5
--- NOTE | 2017-05-20 17:20 | PCM.HF ---
Heart Failure Core Measure - Heart Failure Ejection Fraction: Less Than 40 % (EF 30-35%) KARRI Inhibitor Prescribed: No Contraindication/Reason for not providing: ESRD Beta-Lula Prescribed: Carvedilol Angiotensin II Receptor Lula Prescribed: Yes AnticoagulationTherapy for Atrial Fibrillation/Atrialflutter: No Contraindication/Reason for not providing: no afib Aldosterone Antagonist Prescribed: No Contraindication/Reason for not providing: ESRD Hydralazine Nitrate Prescribed: No Contraindication/Reason for not providing: low BP Implantable Cardioverter Defibrillator Therapy: No Contraindication/Reason for not providing: Clement follow up with cardiologyst Cardiac Resynchronization Therapy Prescribed: No Contraindication/Reason for not providing: not indicated - Follow up Will be discharged to: Home Follow Up Date (must be within 7 days from discharge): 05/25/17 Follow Up Time: 09:00
--- NOTE | 2017-05-20 17:23 | RAD ---
PROCEDURE: CHEST RADIOGRAPH, 1 VIEW HISTORY: f/u pneumonia COMPARISON: 05/15/2017 FINDINGS: LUNGS: Clear. PLEURA: No pneumothorax or pleural fluid seen. CARDIOVASCULAR: Normal heart size. Sternotomy wires. No congestive change. OSSEOUS STRUCTURES: No significant abnormalities. VISUALIZED UPPER ABDOMEN: Normal. OTHER FINDINGS: None. IMPRESSION: No active disease.
--- NOTE | 2017-05-21 06:34 | CARD ---
APPROVED REPORT EXAM: Two-dimensional and M-mode echocardiogram with Doppler and color Doppler. Other Information Quality : GoodRhythm : NSR INDICATION Dyspnea Chest Pain Congestive Heart Failure COPD DIALYSIS RISK FACTORS Hypertension Hyperlipidemia Diabetes 2D DIMENSIONS IVSd0.8 (0.7-1.1cm)LVDd6.4 (3.9-5.9cm) PWd0.9 (0.7-1.1cm)LVDs5.5 (2.5-4.0cm) FS (%) 14.5 %LVEF (%)30.0 (>50%) M-Mode DIMENSIONS Left Atrium (MM)3.54 (2.5-4.0cm)Aortic Root3.37 (2.2-3.7cm) Aortic Cusp Exc.1.88 (1.5-2.0cm) Mitral Valve MV E Rqkubmhp901.3cm/sMV A Uxmfndrf041.0cm/sE/A ratio0.9 TDI E/Lateral E'0.0E/Medial E'0.0 LEFT VENTRICLE The Left Ventricle is moderately dilated. There is normal left ventricular wall thickness. Left ventricle systolic function is normal. The Ejection Fraction is 30-35%. There is moderate to severe global hypokinesis of the left ventricle. RIGHT VENTRICLE The right ventricle is normal size. There is normal right ventricular wall thickness. Systolic function is moderately reduced. ATRIA The left atrium size is normal. The right atrium size is normal. The interatrial septum is intact with no evidence for an atrial septal defect. AORTIC VALVE The aortic valve is normal in structure. No aortic regurgitation is present. MITRAL VALVE The mitral valve is normal in structure. Mitral regurgitation is mild. TRICUSPID VALVE The tricuspid valve is normal in structure. There is mild tricuspid regurgitation. PULMONIC VALVE The pulmonic valve is not well visualized. There is mild pulmonic valvular regurgitation. GREAT VESSELS The aortic root is normal in size. PERICARDIAL EFFUSION There is no significant pericardial effusion. 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 The Ejection Fraction is 30-35%. No aortic regurgitation is present. Mitral regurgitation is mild. There is mild tricuspid regurgitation. There is mild pulmonic valvular regurgitation.
[2017-05-21] MEDS ORDERED: Pantoprazole 40 mg EC Tab PO SCH (10:00)
== END 2017-05-20 17:45 | disposition home or self-care (01) | DRG 193 ==
LOC: C.ER 13:02 → C.3T 13:31 → OBSVTOIN 05-16 15:24
PROVIDERS: ADMIT Internal Medicine Nephrology; ATTEND Internal Medicine Nephrology
PROC: 5A1D70Z Performance of Urinary Filtration, Intermittent, Less than 6 Hours Per Day (ICD-10-PCS; principal; 2017-05-16)
DX: J18.9 Pneumonia, unspecified organism (principal); N18.6 End stage renal disease; E11.22 Type 2 diabetes mellitus with diabetic chronic kidney disease; J44.0 Chronic obstructive pulmonary disease with (acute) lower respiratory infection; J44.1 Chronic obstructive pulmonary disease with (acute) exacerbation; I50.9 Heart failure, unspecified; I12.9 Hypertensive chronic kidney disease with stage 1 through stage 4 chronic kidney disease, or unspecified chronic kidney disease; R41.82 Altered mental status, unspecified; I25.10 Atherosclerotic heart disease of native coronary artery without angina pectoris; E78.5 Hyperlipidemia, unspecified; E78.00 Pure hypercholesterolemia, unspecified; Z79.82 Long term (current) use of aspirin; Z79.84 Long term (current) use of oral hypoglycemic drugs; Z79.899 Other long term (current) drug therapy; Z99.2 Dependence on renal dialysis